=== PATIENT | male | born 1985 | race Caucasian/White ===

== ENCOUNTER → 2023-06-28 11:16 | Outpatient (REF) | payer OTHER, SELFPAY | LOC: PAVMRI 11:16 | PROVIDERS: ATTENDING PHYSICIAN Psychiatry & Neurology Neurology; FAMILY PHYSICIAN Nurse Practitioner | DX: R42 Dizziness and giddiness (principal) | CPT/HCPCS: 70551 ==

== ENCOUNTER → 2024-06-13 07:51 | Outpatient (REF) | payer OTHER, SELFPAY | LOC: HWRCS 07:51 | PROVIDERS: ATTENDING PHYSICIAN Nurse Practitioner Adult Health | DX: R03.0 Elevated blood-pressure reading, without diagnosis of hypertension (principal); R07.89 Other chest pain; I07.1 Rheumatic tricuspid insufficiency; I34.0 Nonrheumatic mitral (valve) insufficiency | CPT/HCPCS: 93306 ==

== ENCOUNTER → 2024-07-02 10:07 | Outpatient (REF) | payer OTHER, SELFPAY | LOC: RCS 10:07 | PROVIDERS: ATTENDING PHYSICIAN Internal Medicine; FAMILY PHYSICIAN Nurse Practitioner Adult Health | DX: R07.89 Other chest pain (principal) | CPT/HCPCS: 93017 ==

== ENCOUNTER → 2025-02-17 07:07 | Outpatient (REF) | payer OTHER, SELFPAY | LOC: MRI 3T 07:07 | PROVIDERS: ATTENDING PHYSICIAN Student in an Organized Health Care Education/Training Program; FAMILY PHYSICIAN Nurse Practitioner Adult Health | DX: M25.572 Pain in left ankle and joints of left foot (principal) | CPT/HCPCS: 73721 ==